=== PATIENT | male | born 1960 | race Caucasian/White ===

== ENCOUNTER 2017-09-19 18:16 | Emergency (ER) | payer OTHER ==
[~2017-09-19] VITALS: Ht 182.9 cm; Wt 74.8 kg
[~2017-09-19 18:16] MED LIST: ACET325; ALBU90OI INH; ALBU90OI6 INH; ALBU90OI61 INH; ALBUTEROL; AZIT250 PO; BENZ100A PO; BREO ELLIPTA 11 EACH INH; BUDE6HFA INH; CEPH500 PO; CETI5 PO; CYCL10 PO; FLUSAL2505; HYDGUAL120 PO; MUCOSA DM TABL1 EACH PO; Mucinex600 MG PO; OXYACE5T PO; PRED20 PO; Percocet 5-3251 EACH PO; Prednisone20 MG PO; QUET300 PO; SULTRIDS PO; TRAZ50 PO; Vibramycin100 MG PO; Zithromax250 MG PO
[2017-09-19 18:40] LABS: BASOPHILS ABSOLUTE AUTO 0.06 K/mm3 (0.00-0.23); BASOPHILS PERCENT AUTO 1 % (0-2); EOSINOPHILS ABSOLUTE AUTO 0.12 K/mm3 (0.00-0.68); EOSINOPHILS PERCENT AUTO 1 % (0-6); Hematocrit 43.9 % (37.0-53.0); IMMATURE GRAN PERCENT AUTO 1 % (0-1); LYMPHOCYTES PERCENT AUTO 37 % (21-46); MONOCYTES ABSOLUTE AUTO 0.64 K/mm3 (0.16-1.47); MONOCYTES PERCENT AUTO 7 % (4-13); Mean Corpuscular HGB 30.9 pg (26.0-34.0); Mean Corpuscular HGB Conc 34.2 g/dL (31.5-36.5); Mean Corpuscular Volume 90 fL (80-100); Mean Platelet Volume 9.9 fL (9.1-12.4); NEUTROPHILS PERCENT AUTO 53 % (41-73); Platelet Count 228 K/mm3 (150-400); RDW Coefficient Variation 13.7 % (11.7-14.2); RDW Standard Deviation 46.3 fL (35.1-46.3); Red Blood Cell Count 4.86 M/mm3 (4.30-5.90); White Blood Cell Count 9.22 K/mm3 (4.00-11.30)
[2017-09-19 19:01] LABS: Alanine Aminotransfer (ALT/SGP 111 U/L (12-78); Albumin, Blood 4.1 g/dL (3.4-5.0); Alk Phos 73 U/L (50-136); Anion Gap 8 mmol/L (6-16); Aspartate Aminotrans (AST/SGOT 118 U/L (12-37); Bilirubin, Total 0.5 mg/dL (0.1-1.0); Blood Urea Nitrogen 13 mg/dL (8-24); Bun/Creatinine Ratio 13.2 (12.0-20.0); CO2, Blood 27 mmol/L (21-32); Calcium, Blood 8.3 mg/dL (8.5-10.1); Chloride, Blood 102 mmol/L (98-108); Creatinine, Blood 0.98 mg/dL (0.60-1.20); Ethanol (Alcohol), Blood, Med 296 mg/dL; Globulin, Blood 4.3 g/dL (2.2-4.0); Glomerular Filtration Rate >60 (60-); Glucose, Blood 92 mg/dL (70-99); Potassium, Blood 4.3 mmol/L (3.5-5.5); Sodium, Blood 137 mmol/L (136-145); Total Protein, Blood 8.4 g/dL (6.4-8.2); Troponin I <0.015 ng/mL (0.000-0.040)
[2017-09-19] MEDS ORDERED: IBUP400 PO (20:20)
[2017-09-20] MEDS ORDERED: QUET100 (00:04)
[2017-09-20] MEDS ORDERED: Prednisone20 MG PO (02:39)
[2017-09-20] MEDS ORDERED: ALBU90OI INH (02:39)
== END 2017-09-19 20:50 | disposition home or self-care (01) ==
LOC: ER 18:16
PROVIDERS: Emergency Medicine
DX: R07.9 Chest pain, unspecified (principal); Z72.89 Other problems related to lifestyle; J44.9 Chronic obstructive pulmonary disease, unspecified; F17.210 Nicotine dependence, cigarettes, uncomplicated; Z79.899 Other long term (current) drug therapy
CPT/HCPCS: 36415; 71045; 71046; 80053; 84484; 85025; 93005; 93010; 96372; 96374; 96375; 99283; G0480; J2060; J2405; J3010

== ENCOUNTER → 2017-12-30 | Outpatient (CLI) | payer OTHER ==
[~2017-12-30] MED LIST changes: +IBUP400 PO; +QUET100
== END ==
LOC: LAB SHORT 17:50 → LAB 17:50
DX: S41.152A Open bite of left upper arm, initial encounter (principal); L03.114 Cellulitis of left upper limb
CPT/HCPCS: 87070; 87075; 87077; 87147; 87186; 87205

== ENCOUNTER 2019-02-27 02:08 | Observation (INO) | payer MEDICARE, OTHER ==
[~2019-02-27] VITALS: Ht 195.6 cm; Wt 90.7 kg
[~2019-02-27 02:08] MED LIST changes: -QUET100
== END 2019-02-27 11:23 | disposition home or self-care (01) ==
LOC: ER 02:08 → EOR 02:09
PROVIDERS: ADMIT Emergency Medicine
DX: F10.129 Alcohol abuse with intoxication, unspecified (principal); J43.9 Emphysema, unspecified; F17.210 Nicotine dependence, cigarettes, uncomplicated; Z79.52 Long term (current) use of systemic steroids
CPT/HCPCS: 96372; 99285-25; G0378; J3486

== ENCOUNTER 2019-03-15 14:14 | Emergency (ER) | payer MEDICARE, OTHER ==
[~2019-03-15] VITALS: Ht 195.6 cm; Wt 90.7 kg
== END 2019-03-15 15:34 | disposition home or self-care (01) ==
LOC: ER 14:14
DX: S62.347A Nondisplaced fracture of base of fifth metacarpal bone, left hand, initial encounter for closed fracture (principal); F17.210 Nicotine dependence, cigarettes, uncomplicated; Z79.899 Other long term (current) drug therapy; Z79.51 Long term (current) use of inhaled steroids; W22.8XXA Striking against or struck by other objects, initial encounter
CPT/HCPCS: 29125; 73130; 99283-25

== ENCOUNTER 2020-03-23 00:56 | Inpatient (IN) | payer MEDICARE ==
[~2020-03-23] VITALS: Ht 195.6 cm; Wt 90.6 kg
[2020-03-23 01:14] LABS: Hematocrit 40.9 % (37.0-53.0); Hemoglobin 14.1 g/dL (13.5-17.5); Mean Corpuscular HGB 31.5 pg (26.0-34.0); Mean Corpuscular HGB Conc 34.5 g/dL (31.5-36.5); Mean Corpuscular Volume 91 fL (80-100); Mean Platelet Volume 10.3 fL (9.1-12.4); Platelet Count 185 K/mm3 (150-400); RDW Coefficient Variation 13.8 % (11.7-14.2); RDW Standard Deviation 46.7 fL (35.1-46.3); Red Blood Cell Count 4.48 M/mm3 (4.30-5.90); White Blood Cell Count 12.21 K/mm3 (4.00-11.30)
[2020-03-23 01:24] LABS: PCO2 Arterial 31.6 mmHg (35-45); PO2 Arterial 106 mmHg (80-100); pH Blood Arterial 7.41 (7.35-7.45)
[2020-03-23 01:34] LABS: Alanine Aminotransfer (ALT/SGP 304 U/L (12-78); Albumin, Blood 3.2 g/dL (3.4-5.0); Albumin/Globulin Ratio 0.8 (0.8-1.8); Alk Phos 85 U/L (50-136); Anion Gap 11 mmol/L (6-16); Aspartate Aminotrans (AST/SGOT 404 U/L (12-37); Bilirubin, Total 2.5 mg/dL (0.1-1.0); Blood Urea Nitrogen 19 mg/dL (8-24); Bun/Creatinine Ratio 16.2 (12.0-20.0); CO2, Blood 21 mmol/L (21-32); Calcium, Blood 8.3 mg/dL (8.5-10.1); Chloride, Blood 102 mmol/L (98-108); Creatinine, Blood 1.17 mg/dL (0.60-1.20); Globulin, Blood 4.2 g/dL (2.2-4.0); Glomerular Filtration Rate >60 (60-); Glucose, Blood 121 mg/dL (70-99); Potassium, Blood 4.1 mmol/L (3.5-5.5); Sodium, Blood 134 mmol/L (136-145); Total Protein, Blood 7.4 g/dL (6.4-8.2); Troponin I <0.015 ng/mL (0.000-0.040)
[2020-03-23 01:36] LABS: BAND PERCENT MAN 34 % (0-8); BASOPHILS PERCENT MAN 0 % (0-2); EOSINOPHILS PERCENT MAN 0 % (0-6); LYMPHOCYTES ABSOLUTE MAN 1.09 K/mm3 (0.84-5.20); LYMPHOCYTES PERCENT MAN 9 % (21-46); METAMYELOCYTE ABSOLUTE MAN 0.24 K/mm3 (0.00-0.00); METAMYELOCYTE PERCENT MAN 2 % (0-0); MONOCYTES ABSOLUTE MAN 0.48 K/mm3 (0.16-1.47); MONOCYTES PERCENT MAN 4 % (4-13); NEUTROPHILS ABSOLUTE MAN 10.37 K/mm3 (1.96-9.15); SEG NEUTROPHILS PERCENT MAN 51 % (41-73); TOTAL CELLS COUNTED 100
[2020-03-23 02:22] LABS: Source, Urine Catheter
[2020-03-23 02:24] LABS: Bilirubin, Urine Neg (Neg); Blood, Urine 1+ (Neg); Glucose Qualitative, Urine Neg (Neg); Ketones, Urine 1+ (Neg); Leukocyte Esterase, Urine 1+ (Neg); Nitrite, Urine Neg (Neg); Protein, Urine 1+ (Neg); Urobilinogen, Urine 1+ (Normal)
[2020-03-23 02:33] LABS: Appearance, Urine Clear (Clear); Color, Urine Yellow (P-Yellow)
[2020-03-23 02:34] LABS: Bacteria Rare /hpf; Red Blood Cells, Urine 0-2 /hpf (0-2); Squamous Epithelial Cells Few /hpf (Few); White Blood Cells, Urine 0-2 /hpf (0-5)
[2020-03-23 02:57] LABS: Hemoglobin 13.2 g/dL (13.5-17.5); Mean Corpuscular HGB 32.2 pg (26.0-34.0); Mean Corpuscular HGB Conc 34.7 g/dL (31.5-36.5); Mean Corpuscular Volume 93 fL (80-100); Mean Platelet Volume 10.5 fL (9.1-12.4); Platelet Count 160 K/mm3 (150-400); White Blood Cell Count 10.74 K/mm3 (4.00-11.30)
[2020-03-23 03:08] LABS: U Amphetamine Screen Not Detected; U Barbituate Screen Not Detected; U Benzodiazapine Screen Not Detected; U Cannabinoids Screen Not Detected; U Cocaine Screen Not Detected; U Methadone Screen Not Detected; U Methamphetamine Screen Not Detected; U Opiates Screen Not Detected; U Phencyclidine Screen Not Detected
[2020-03-23 03:09] LABS: U Buprenorphine Screen Not Detected; U Oxycodone Screen Not Detected; U Propoxyphene Screen Not Detected
[2020-03-23 03:15] LABS: BAND PERCENT MAN 38 % (0-8); BASOPHILS PERCENT MAN 0 % (0-2); EOSINOPHILS PERCENT MAN 0 % (0-6); LYMPHOCYTES ABSOLUTE MAN 0.64 K/mm3 (0.84-5.20); LYMPHOCYTES PERCENT MAN 6 % (21-46); METAMYELOCYTE ABSOLUTE MAN 0.42 K/mm3 (0.00-0.00); METAMYELOCYTE PERCENT MAN 4 % (0-0); MONOCYTES ABSOLUTE MAN 0.21 K/mm3 (0.16-1.47); MONOCYTES PERCENT MAN 2 % (4-13); MYELOCYTE ABSOLUTE MAN 0.21 K/mm3 (0.00-0.00); MYELOCYTE PERCENT MAN 2 % (0-0); NEUTROPHILS ABSOLUTE MAN 9.23 K/mm3 (1.96-9.15); SEG NEUTROPHILS PERCENT MAN 48 % (41-73); TOTAL CELLS COUNTED 100
[2020-03-23 03:17] LABS: Alanine Aminotransfer (ALT/SGP 275 U/L (12-78); Albumin, Blood 2.8 g/dL (3.4-5.0); Albumin/Globulin Ratio 0.7 (0.8-1.8); Alk Phos 74 U/L (50-136); Anion Gap 10 mmol/L (6-16); Aspartate Aminotrans (AST/SGOT 366 U/L (12-37); Bilirubin, Total 2.6 mg/dL (0.1-1.0); Blood Urea Nitrogen 20 mg/dL (8-24); CO2, Blood 22 mmol/L (21-32); Chloride, Blood 103 mmol/L (98-108); Creatinine, Blood 1.25 mg/dL (0.60-1.20); Globulin, Blood 3.9 g/dL (2.2-4.0); Glomerular Filtration Rate >60 (60-); Glucose, Blood 133 mg/dL (70-99); Sodium, Blood 135 mmol/L (136-145); Total Protein, Blood 6.7 g/dL (6.4-8.2)
--- NOTE | 2020-03-23 04:20 | NUR ---
SPOKE WITH DR. PRESSLEY ABOUT IVF'S. STATES HE WANTS THE NS D/C'D AND FOR LR TO RUN BECAUSE THE PT IS ACIDOTIC.
--- NOTE | 2020-03-23 05:05 | NUR ---
ADMIT: PT TRANSFERRED TO ICU 5 VIA GURNEY WITH 2 RN'S AT BEDSIDE AND RT. HEART MONITOR ON AND SHOWING SINUS TACH WITH HR 130'S. PT ON VENT SETTINGS AC 16, TV 550, FIO2 30% AND PEEP 8. LS COARSE DIMINSIDHED T/O AND VERY DIMINISHED IN THE BASES. RR 32, PT NOT WELL SEDATED AND ATTEMPTING TO SIT UP IN BED AND REACH FOR ETT. BILAT WRIST RESTRAINTS APPLIED. SKIN PINK, WARM AND DRY. SCABS AND SCARS ON ARMS AND CHEST. WHAT LOOKS LIKE OLD CHEST TUBE SCARS NOTED; 2 ON LEFT, AND 1 ON RIGHT. 20G IV R AC WITH NS @ 100CC/HR. 18G IV LAC WITH PROPOFOL INCREASE TO 65MCG/KG/MIN. ABD R/F WITH HYPO BTX4. OG IN PLACE. MANZO TEMP PROBE IN PLACE. PT WAS TAKEN FOR CT CHEST TO R/O PE PRIOR TO ARRIVAL TO ICU.
--- NOTE | 2020-03-23 07:15 | NUR ---
ASSUMED CARE ASSUMED CARE OF PT AT 0700. REPORT RECEIVED FROM EMMA BENITEZ. PT INTUBATED, SEDATED, IN NO APPARENT DISTRESS. PUPILS 2MM, ROUND AND REACTIVE TO LIGHT. VENT SETTINGS AC 16, TV 550, PEEP 8, FiO2 30%, ACTUAL RR HIGH 20s-LOW 30s, SPO2 96%. LUNG SOUNDS CLEAR AND DIMINISHED T/O. MONITOR SHOWS SINUS TACH WITH HR 110-120s, SBP 90s, AFEBRILE. ABDOMEN ROUND AND FIRM, BTs HYPOACTIVE T/O, NO S/SX OF PAIN ON PALPATION. TEMP MANZO IN PLACE DRAINING CLEAR YELLOW URINE TO GRAVITY. SKIN OVERALL C/D/I WITH SEVERAL OLD SCARS T/O TRUNK AND ARMS AND SCATTERED SCABBING. PT HAS 20G IV TO R AC WHICH IS SL, 20G TO R FA WITH LR @150ML/HR, AND 18G TO L AC WITH PROPOFOL AT 65MCG/KG. MICHELLE SOFT WRIST RESTRAINTS IN PLACE TO PROTECT LINES, TUBES. WILL CONTINE TO MONITOR PT CLOSELY.
--- NOTE | 2020-03-23 09:30 | NUR ---
DR. PEREZ/DR. DC PEREZ AND DR. IRWIN ROUNDED ON PT. PLAN TO KEEP PT INTUBATED AND SEDATED TODAY. PLAN FOR ECHO. PLAN TO ADD PRECEDEX FOR SEDATION AND DECREASE PROPOFOL TOLERATED. MAINTENANCE IV FLUIDS DC'D. NO ADDITIONAL ORDERS RECEIVED AT THIS TIME. WILL CONTINUE TO MONITOR PT.
--- NOTE | 2020-03-23 14:40 | NUR ---
TUBE FEED VITAL HIGH PROTEIN TUBE FEED STARTED AT 25ML/HR PER ORDERS WITH 30ML/Q4H H2O FLUSH.
--- NOTE | 2020-03-23 16:15 | NUR ---
HANDOFF REPORT GIVEN TO EMMA NEUMANN TO ASSUME CARE OF PT.
--- NOTE | 2020-03-23 16:33 | NUR ---
care assumed of pt; bedside report taken. pt sedated on propofol at 45mcg, precedex at 0.5mcg. pt on levophed at 2mcg to keep map>65.
--- NOTE | 2020-03-23 17:28 | NUR ---
PICC WAS PLACED TO NIK EARILIER THIS SHIFT, PICC PLACED W/O DIFFICULTY. PT PLACED ON MED SS COVERAGE FOR BS.
--- NOTE | 2020-03-23 19:43 | NUR ---
ASSUMED CARE: PT SEDATED, BUT PULLS AT BIALT WRSIT RESTRAINTS WHEN AROUSED, ANDREA AT 3MM BILAT. LS VERY TIGHT AND DIMINISHED T/O WITH BIOX 96% ON VENT SETTINGS AC 16, TV 400, FIO2 30% AND PEEP 8. PT USING ACCESSORY MUSCLES. HEART SOUNDS VERY DISTANT WITH MONITOR SHOWING ST WITH HR 120. SKIN, PINK, WARM AND DRY. PPP BILAT AND FAINT. RADIAL PULSES FAINT WELL. 18G IV LAC S/L. TRIPLE LUMEM PICC NIK WITH 3CM OUT. LEVOPHED RUNNING AT 2MCG/MIN = 7.5CC/HR WITH PROPOFOL AT 45MCG/KG/MIN= 24.8CC/HR AND PRECEDEX AT 0.5MCG/KG/HR= 11.5CC/HR. ABD R/D WITH HYPO BTX4. VHP TUBE FEEDING RUNNING AT 25CC/HR WITH 30CC FLUSH Q4H. TUBE FEEDING RESIDUALS 200 AND REFED. WILL CONTINUE TO MONITOR. MANZO DRAINING DARK YELLOW URINE.
--- NOTE | 2020-03-23 19:45 | NUR ---
CALLED DR. PEREZ ABOUT PT'S BREATHING STATUS. CODIE RT TALKED TO DR. PEREZ AND WE CHANGED PT'S TV TO 600. PT SEEMS TO BE TOLERATING IT MUCH BETTER.
--- NOTE | 2020-03-24 00:43 | NUR ---
MIDSHIFT NOTE: TUBE FEEDING RESIDUALS 300CC AND REFED. TUBE FEEDING STOPPED FOR NOW. LS CLEAR DIMINSHED IN THE BASES WITH BIOX 95%. COMPLETE BED BATH GIVEN. NO ACUTE CHANGES.
--- NOTE | 2020-03-24 03:43 | NUR ---
ASSESSMENT: LS VERY DIMINISHED AND TIGHT T/O. RT AT BEDSIDE TO DO BREATHING TX. TUBE FEEDING RESIDUALS 20CC ANDREFED. TUBE FEEDING RESTARTED AT 25CC/HR.
[2020-03-24 03:50] LABS: Hematocrit 36.2 % (37.0-53.0); Hemoglobin 12.1 g/dL (13.5-17.5); Mean Corpuscular HGB 30.6 pg (26.0-34.0); Mean Corpuscular HGB Conc 33.4 g/dL (31.5-36.5); Mean Corpuscular Volume 92 fL (80-100); Mean Platelet Volume 10.5 fL (9.1-12.4); Platelet Count 140 K/mm3 (150-400); RDW Coefficient Variation 13.6 % (11.7-14.2); RDW Standard Deviation 46.5 fL (35.1-46.3); Red Blood Cell Count 3.95 M/mm3 (4.30-5.90); White Blood Cell Count 17.41 K/mm3 (4.00-11.30)
[2020-03-24 04:08] LABS: Alanine Aminotransfer (ALT/SGP 196 U/L (12-78); Albumin, Blood 2.4 g/dL (3.4-5.0); Albumin/Globulin Ratio 0.6 (0.8-1.8); Alk Phos 51 U/L (50-136); Anion Gap 5 mmol/L (6-16); Aspartate Aminotrans (AST/SGOT 188 U/L (12-37); Bilirubin, Total 2.2 mg/dL (0.1-1.0); Blood Urea Nitrogen 19 mg/dL (8-24); Bun/Creatinine Ratio 16.5 (12.0-20.0); CO2, Blood 28 mmol/L (21-32); Calcium, Blood 8.4 mg/dL (8.5-10.1); Chloride, Blood 104 mmol/L (98-108); Creatinine, Blood 1.15 mg/dL (0.60-1.20); Globulin, Blood 4.2 g/dL (2.2-4.0); Glomerular Filtration Rate >60 (60-); Glucose, Blood 164 mg/dL (70-99); Magnesium, Blood 2.1 mg/dL (1.6-2.4); Phosphorus, Blood 1.8 mg/dL (2.5-4.9); Potassium, Blood 3.5 mmol/L (3.5-5.5); Sodium, Blood 137 mmol/L (136-145); Total Protein, Blood 6.6 g/dL (6.4-8.2)
[2020-03-24 04:28] LABS: BAND PERCENT MAN 38 % (0-8); BASOPHILS PERCENT MAN 0 % (0-2); EOSINOPHILS PERCENT MAN 0 % (0-6); LYMPHOCYTES ABSOLUTE MAN 0.17 K/mm3 (0.84-5.20); LYMPHOCYTES PERCENT MAN 1 % (21-46); METAMYELOCYTE ABSOLUTE MAN 0.17 K/mm3 (0.00-0.00); METAMYELOCYTE PERCENT MAN 1 % (0-0); MONOCYTES ABSOLUTE MAN 0.52 K/mm3 (0.16-1.47); MONOCYTES PERCENT MAN 3 % (4-13); MYELOCYTE ABSOLUTE MAN 0.17 K/mm3 (0.00-0.00); MYELOCYTE PERCENT MAN 1 % (0-0); NEUTROPHILS ABSOLUTE MAN 16.36 K/mm3 (1.96-9.15); SEG NEUTROPHILS PERCENT MAN 56 % (41-73); TOTAL CELLS COUNTED 100
--- NOTE | 2020-03-24 08:00 | NUR ---
ASSUMED CARE OF PT AT 0700. BEDSIDE REPORT FROM EMMANUEL CARTER. PT INTUBATED AND SEDATED. VENT SETTINGS, AC 14/600/8/30&. PROPOFOL GTT AT 45 MCG/KG/MIN AND PRECEDEX AT 0.5 MCG/KG/HR. PT RESPONSIVE TO PAINFUL STIMULI. WITHDRAWS FROM PAIN. GAG/COUGH REFLEX PRESENT. LUNGS DIMINISHED THROUGHOUT. SCANT YELLOW SECRETIONS THROUGH ETT. BP STABLE, HR 100, ST. ABD ROUND, FIRM, HYPOACTIVE BT. TUBE FEEDS AT 25 MG/HR c 30 ML FLUSH q4 HR. 10 ML RESIDUAL THIS AM. MANZO IN PLACE, PATENT, DRAINING TO GRAVITY. PT c MULTIPLE SCARS OVER BODY. PICC TO [facility], DRESSING C/D/I. WILL CONTINUE TO MONITOR.
[2020-03-24] MEDS ORDERED: METOPROLOL SUCC25 MG PO (13:46)
[2020-03-24] MEDS ORDERED: PRINIVIL10 MG PO (13:46)
[2020-03-24] MEDS ORDERED: AMLODIPINE BESYL5 MG PO (13:46)
[2020-03-24] MEDS ORDERED: Diclofenac Sodi50 MG (13:47)
[2020-03-24] MEDS ORDERED: QUETIAPINE FUM300 M3 PO (13:47)
[2020-03-24 15:17] LABS: Vancomycin, Trough 14.5 ug/mL (5.0-10.0)
--- NOTE | 2020-03-24 16:24 | NUR ---
Pt reamins on vent reveiw of pt needs with nursing. Pt is here staying with friends. He has been declining in his ability tolerate any activity. Sis ter in coming in from out of state this evening. Plan is to try and extubate tomorrow and discuss code status and possible home on hospice.
--- NOTE | 2020-03-24 17:41 | NUR ---
SHIFT SUMMARY PT REMAINS INTUBATED AND SEDATED. PT HAS BEEN ON SPONT 5/5/30% MOST OF SHIFT. TOLERATING WELL. APPROX 600 TV, RATE 16-20. PROPOFOL GTT AT 30 MCG/KG/MIN, PRECEDEX 0.7 MCG/KG/HR. PT RESPONSES TO PAINFUL STIMULI. RASS -4, OCCASIONALLY TENSES OR PULLS ON RESTRAINTS WHEN STARTLED. LUNGS COARSE. SCANT SECRETIONS THROUGH ETT. ABD ROUND, FIRM, NON TENDER. HYPOACTIVE BT, RESIDUALS 10, 20, 220. CONTINUED VHP AT 35 ML/HR c FLUSHES 30 ML q4. MANZO PATENT, DRAINING RAAD URINE TO GRAVITY. VSS. KPHOS REPLACED THIS SHIFT. CT ABD/PELVIS COMPLETED, COLITIS NOTED. ETT SECURED AT 25 AT TEETH POST XRAY. WILL CONTINUE TO MONITOR UNTIL REPORT TO ONCOMING NURSE.
--- NOTE | 2020-03-24 21:00 | NUR ---
ASSUMED PT CARE FROM EMMA LIU AT 1915 PT INTUBATED AND SEDATED. PRECEDEX AT 0.7MCG/KG/HR, PROPOFOL AT 30MCG/KG/MIN. VENT: SPONTANEOUS WITH PS 5/5; FIO2 30%. SEDATION VACATION PERFORMED RIGHT AWAY TO ESTABLISH BASELINE NEURO STATUS. PROPOFOL TITRATED DOWN TO 10MCG/KG/MIN. PT SPONTANEOUSLY ABLE TO OPEN EYES, SHAKES HEAD YES/NO TO QUESTIONS, AND FOLLOWS COMMANDS. PT BECAME VERY ANXIOUS AND ATTEMPTED SITTING UP IN BED AND PULLING ON RESTRAINTS. TURNED PROPOFOL BACK ON AT 25MCG/KG/MIN AND ADMINISTERED 50MCG OF FENTANYL PER ORDERS FOR PAIN. VITAL HIGH PROTEIN INFUSING AT 35MLS/HR WITH A GOAL RATE OF 50 MLS/HR. RESIDUAL 140CC; TF INCREASED TO 45MLS/HR SHORTLY AFTER ASSUMPTION OF CARE. PT NOTED TO BE NSR TO SINUS TACHYCARDIA WITH HR 90-100'S. SBP 110-120'S. MANZO CATHETER IS PATENT AND DRAINING CLEAR BUT DARK RAAD COLORED URINE TO GRAVITY. WILL CONTINUE TO MONITOR FOR ANY CHANGES.
[2020-03-25 04:28] LABS: Base Excess Venous 3.9 mmol/L; Bicarbonate Venous 27.3 mmol/L (24.0-30.0); PO2 Venous 48.3 mmHg (38-42); pH Blood Venous 7.44 (7.34-7.37)
[2020-03-25 04:29] LABS: BASOPHILS ABSOLUTE AUTO 0.03 K/mm3 (0.00-0.23); BASOPHILS PERCENT AUTO 0 % (0-2); EOSINOPHILS ABSOLUTE AUTO 0.01 K/mm3 (0.00-0.68); EOSINOPHILS PERCENT AUTO 0 % (0-6); Hematocrit 34.1 % (37.0-53.0); Hemoglobin 11.6 g/dL (13.5-17.5); IMMATURE GRAN PERCENT AUTO 2 % (0-1); LYMPHOCYTES ABSOLUTE AUTO 1.42 K/mm3 (0.84-5.20); LYMPHOCYTES PERCENT AUTO 8 % (21-46); MONOCYTES ABSOLUTE AUTO 0.66 K/mm3 (0.16-1.47); MONOCYTES PERCENT AUTO 4 % (4-13); Mean Corpuscular HGB 31.6 pg (26.0-34.0); Mean Corpuscular Volume 93 fL (80-100); Mean Platelet Volume 10.6 fL (9.1-12.4); NEUTROPHILS PERCENT AUTO 86 % (41-73); Platelet Count 143 K/mm3 (150-400); RDW Coefficient Variation 14.2 % (11.7-14.2); RDW Standard Deviation 48.5 fL (35.1-46.3); Red Blood Cell Count 3.67 M/mm3 (4.30-5.90); White Blood Cell Count 17.42 K/mm3 (4.00-11.30)
[2020-03-25 04:51] LABS: Anion Gap 4 mmol/L (6-16); Blood Urea Nitrogen 21 mg/dL (8-24); Bun/Creatinine Ratio 22.9 (12.0-20.0); CO2, Blood 28 mmol/L (21-32); Calcium, Blood 8.2 mg/dL (8.5-10.1); Chloride, Blood 107 mmol/L (98-108); Creatinine, Blood 0.92 mg/dL (0.60-1.20); Glomerular Filtration Rate >60 (60-); Glucose, Blood 130 mg/dL (70-99); Magnesium, Blood 2.4 mg/dL (1.6-2.4); Phosphorus, Blood 1.9 mg/dL (2.5-4.9); Potassium, Blood 3.8 mmol/L (3.5-5.5); Sodium, Blood 139 mmol/L (136-145)
--- NOTE | 2020-03-25 06:29 | NUR ---
END OF SHIFT SUMMARY PT REMAINS INTUBATED AND SEDATED. PROPOFOL AT 30MCG/KG/MIN, PRECEDEX AT 0.7 MCG/KG/HR. VENT SETTINGS: SPONTANEOUS PS 5/5; FIO2 30%. NO SIGNIFICANT CHANGES T/O SHIFT. PT ABLE TO FOLLOW COMMANDS DURING SEDATION VACATION, SEE EARLIER ENTRY NOTE. VITAL HIGH PROTEIN INFUSING AT GOAL OF 50MLS/HR. MANZO CATH IS PATENT AND DRAINING CLEAR DARK, RAAD COLORED URINE WITH AN ORANGE TINT NOTED. PT HAS REMAINED NSR WITH HR 90'S; BP'S STABLE, SEE FLOWSHEET. WILL CONTINUE TO MONITOR UNTIL REPORT IS HANDED OFF TO ONCOMING RN.
--- NOTE | 2020-03-25 07:40 | NUR ---
ASSUMED CARE OF PT AT 0700. BEDSIDE REPORT FROM ITZ CARTER. PT INTUBATED AND SEDATED. VENT SETTINGS SPONT 5/5/30%. PROPOFOL GTT 50 MCG/KG/MIN, PRECEDEX 0.7 MCG/KG/HR. PT INTERMITTANTLY AGITATED, SITTING UP IN BED, PULLING ON RESTRAINTS. MEDICATED c FENTANYL AND ATIVAN PRN. ABLE TO CALM AND REDIRECT PT. LUNGS CLEAR. SCANT SECRETIONS THROUGH ETT. COUGH/GAG REFLEX PRESENT. ABD ROUND, SOFT, NON TENDER. HYPOACTIVE BT. VHP AT GOAL OF 50 ML/HR c 30 ML FLUSHES q4 HR. RESIDUAL 100 ML THIS AM. MANZO PATENT, DRAINING TO GRAVITY. PICC TO RUE, DRESSING C/D/I. VSS. WILL CONTINUE TO MONITOR.
--- NOTE | 2020-03-25 10:35 | NUR ---
EXTUBATION PROPOFOL PLACED ON STANDBY. PT ABLE TO FOLLOW SIMPLE COMMANDS. GAG/COUGH/SWALLOW REFLEX PRESENT. PT EXTUBATED AT 0958, RESTRAINTS REMOVED, PRECEDEX PLACED ON STANDBY. PT ABLE TO COUGH ON COMMAND. WEAK AT THIS TIME. ABLE TO MANAGE SECRETIONS. REORIENTED TO EVENT. SOFT VOICE. PLACED ON 3L VIA NC. LUNGS CLEAR. BRITTANY CONTINUE TO MONITOR.
--- NOTE | 2020-03-25 17:30 | NUR ---
SHIFT SUMMARY PT EXTUBATED THIS SHIFT. CURRENTLY ON RA, O2 SATS >91%. LUNGS OCCASIONALLY COARSE. PRODUCTIVE COUGH c CLEAR SPUTUM. PT ABLE TO MANAGE SECRETIONS. SPEAKING IN FULL SENTANCES. PT FRIENDLY c STAFF BUT YELLS TO STAFF IN HALLS. ENCOURAGED PT TO USE CALL LIGHT. PT PASSED BEDSIDE SWALLOW EVAL s DIFFICULTIES. ADVANCED DIET. HR INCREASED TO 120'S, DR WALLS NOTIFIED. HOME METOPROLOL AND SEROQUEL ORDERED. PT HAD ONE LOOSE BM. 2300ML URINE OUT, MANZO PATENT, DRAINING TO GRAVITY. BP STABLE. WILL CONTINUE TO MONITOR UNTIL REPORT TO ONCOMING NURSE.
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
--- NOTE | 2020-03-25 19:22 | NUR ---
ASSUMED PT CARE FROM EMMA LIU AT 1900 PT SITTING UP IN BED. ALERT AND ORIENTED; HOWEVER, NOTED TO BE FORGETFUL AT TIMES. PT NOTED TO HAVE A VERY DRY SENSE OF HUMOR SAYING THAT THE NURSES HAVE BEEN MEAN TO HIM AND THAT HE HAD TO JOKE AROUND WITH THEM BY THREATENING TO "SHOOT THEM" AND "STAB THEM"; I REPLIED THAT WASN'T A GOOD JOKE, NOR SOMETHING THAT WAS FUNNY. PT APOLOGIZED AND SAID, "NAW, THE STAFF HAS BEEN VERY NICE." PT NOTED TO BECOME SOB DURING CONVERSATIONS. EXPIRATORY WHEEZING NOTED TO RIGHT UPPER LOBE; CLEAR T/O ALL OTHER LOBES. SINUS TACHYCARDIA NOTED WITH HR 120'S. SBP >150. PT MEDICATED WITH METOPROLOL PER ORDERS EARLIER. NS INFUSING TKO VIA PICC LINE TO NIK. ABDOMEN IS MILDLY DISTENDED WITH ACTIVE BT. MANZO CATHETER IS PATENT AND DRAINING CLEAR, YELLOW URINE TO GRAVITY. PT ABLE TO SHIFT OWN WEIGHT IN BED; HOWEVER, ASSISTED WITH BOOST D/T LEGS HANGING OVER END OF THE BED. PT REQUESTED A BEER. INFORMED PT HE DID NOT HAVE ORDERS FOR A BEER, BUT WE COULD ASK THE DOCTOR IN THE MORNING. PT STATED, "THAT'S OKAY, IT'S GOOD TO GO A FEW DAYS WITHOUT A DRINK." OBTAINED A VIOLET MIST FOR PT INSTEAD. PT STATED HE HOPES HE CAN SLEEP TONIGHT HE DID NOT GET ANY SLEEP THE ENTIRE TIME HE WAS INTUBATED. HE WAS WIDE AWAKE AND THAT THE STAFF KEPT SAYING THEY WOULD SEDATE HIM AND MAKE HIM COMFORTABLE, BUT THAT WAS NOT THE CASE. STATED HE DOESN'T WANT TO BE INTUBATED AGAIN. INFORMED PT THAT HE SHOULD FILL OUT A POLST FORM TO LET STAFF KNOW HIS WISHES BECAUSE OF NOW HE IS A FULL CODE, INCLUDING INTUBATION. CALL LIGHT WITHIN REACH; PT ABLE TO MAKE HIS NEEDS KNOWN.
[2020-03-26 04:10] LABS: BASOPHILS ABSOLUTE AUTO 0.05 K/mm3 (0.00-0.23); BASOPHILS PERCENT AUTO 0 % (0-2); EOSINOPHILS ABSOLUTE AUTO 0.03 K/mm3 (0.00-0.68); EOSINOPHILS PERCENT AUTO 0 % (0-6); Hematocrit 34.5 % (37.0-53.0); Hemoglobin 11.6 g/dL (13.5-17.5); IMMATURE GRAN ABSOLUTE AUTO 0.23 K/mm3 (0.00-0.10); IMMATURE GRAN PERCENT AUTO 2 % (0-1); LYMPHOCYTES ABSOLUTE AUTO 2.28 K/mm3 (0.84-5.20); LYMPHOCYTES PERCENT AUTO 18 % (21-46); MONOCYTES ABSOLUTE AUTO 0.58 K/mm3 (0.16-1.47); MONOCYTES PERCENT AUTO 5 % (4-13); Mean Corpuscular HGB 31.8 pg (26.0-34.0); Mean Corpuscular HGB Conc 33.6 g/dL (31.5-36.5); Mean Corpuscular Volume 95 fL (80-100); Mean Platelet Volume 10.3 fL (9.1-12.4); NEUTROPHILS PERCENT AUTO 76 % (41-73); Platelet Count 152 K/mm3 (150-400); RDW Coefficient Variation 14.9 % (11.7-14.2); RDW Standard Deviation 52.2 fL (35.1-46.3); Red Blood Cell Count 3.65 M/mm3 (4.30-5.90); White Blood Cell Count 12.97 K/mm3 (4.00-11.30)
[2020-03-26 04:25] LABS: Anion Gap 2 mmol/L (6-16); Blood Urea Nitrogen 18 mg/dL (8-24); Bun/Creatinine Ratio 20.4 (12.0-20.0); CO2, Blood 31 mmol/L (21-32); Calcium, Blood 8.8 mg/dL (8.5-10.1); Chloride, Blood 111 mmol/L (98-108); Creatinine, Blood 0.88 mg/dL (0.60-1.20); Glomerular Filtration Rate >60 (60-); Glucose, Blood 82 mg/dL (70-99); Magnesium, Blood 2.3 mg/dL (1.6-2.4); Phosphorus, Blood 1.9 mg/dL (2.5-4.9); Potassium, Blood 3.6 mmol/L (3.5-5.5); Sodium, Blood 144 mmol/L (136-145)
--- NOTE | 2020-03-26 06:18 | NUR ---
END OF SHIFT SUMMARY NO SIGNIFICANT CHANGES OR EVENTS T/O SHIFT. PT HAS BEEN AWAKE ALL NIGHT. CONTINUES TO BE ALERT WITH FORGETFULNESS NOTED. DID REQUEST HIS ARTHRITIS MEDICATION THAT HE COULD NOT RECALL THE NAME OF. STATES HE GOES TO A [facility] IN [place], [place]. INFORMED HIM WE COULD ATTEMPT TO ALL AND SEE WHAT MED IT IS AND ASK FOR ORDERS. PT HAS BEEN ON ROOM AIR WITH OXYGEN SATURATIONS >90%. AT SOMEPOINT IN THE NIGHT PT PLACED HIMSELF ON 3L OF OXYGEN; HOWEVER, OXYGEN WAS NOT NEEDED AND REMOVED WITH SPO2 REMAINING >90%. VSS, SEE FLOWSHEET. LUNG SOUNDS VARY BETWEEN CLEAR AND DIMINISHED TO COARSE AND WHEEZING. MANZO CATHETER IS PATENT AND DRAINING DARK, RAAD COLORED URINE TO GRAVITY. CALL LIGHT WITHIN REACH AND PT IS ABLE TO MAKE HIS NEEDS KNOWN.
--- NOTE | 2020-03-26 07:45 | NUR ---
ASSUMED CARE: REPORT RECEIVED FROM ITZ Mendes RN. ASSUMED CARE OF THIS PT AT APPROX 0700. ON ASSESSMENT, THE PT IS A&O, COOPERATIVE W/ CARE. HE HAS A DRY SENSE OF HUMOR & MAKES INNAPROPRIATE JOKES AT TIMES, BUT IS REDIRECTED EASILY. PT STS HAVING CHRONIC PAIN TO HIS R SHOULDER R/T ARTHRITIS, PAIN IS WORSENED FROM LACK OF PHYSICAL MOVEMENT & NOT TAKING HOME MED DICLOFENAC. WILL ADDRESS THIS W/ PROVIDER IF PT WILL BE STAYING IN HOSPITAL AGAIN TONIGHT. LS ARE DIM IN BASES, PT DENIES SOB. O2 SATS > 92% ON RA. MONITOR SHOWS ST W/ HR 100s, BP STABLE. HE HAS NO GI COMPLAINTS & IS TOLERATING PO INTAKE WELL. MANZO PATENT/ DRAINING. SKIN CONDITION OVERALL CDI. WILL CONTINUE TO MONITOR & UPDATE NEEDED.
--- NOTE | 2020-03-26 08:36 | NUR ---
DR SMITH: PROVIDER AT BEDSIDE TO AMNA PT. HE STS OKAY TO REORDER PT's HOME DOSE OF DICLOFENAC FOR CHRONIC ARTHRITIS PAIN TO R SHOULDER, WILL PLACE ORDERS. ALSO OKAY FOR PT TO BE MEDICAL STATUS W/ NO TELE, ORDERS PLACED. NO OTHER CHANGES AT THIS TIME.
--- NOTE | 2020-03-26 17:39 | NUR ---
TRANSFER TO ROOM 358: REPORT HAS BEEN GIVEN TO EMMA ALLISON TO ASSUME CARE. PT IS ABLE TO AMBULATE TO W/ 2 STAFF ASSIST & REQUESTS TO HAVE MANZO REMOVED. MANZO OUT AT 1723. CHART & ALL PT BELONGINGS HAVE BEEN TAKEN UP W/ PT. PT OUT OF UNIT TO RM 358 VIA AT APPROX 1725.
--- NOTE | 2020-03-26 18:37 | NUR ---
PT ARRIVED AO AND COOPERATIVE OF CARE. ARRIVED VIA WHEELCHAIR AND IS A 1-2 PERSON TRANSFER. PT CAN USE CALL LIGHT APPROPRIATELY AND HAS IT IN REACH. PT SHOWS NO SIGNS OF DISTRESS AND IS EATING DINNER WHILE WATCHING TV. WILL CONTINUE TO MONITOR.
[2020-03-27 05:52] LABS: BASOPHILS ABSOLUTE AUTO 0.05 K/mm3 (0.00-0.23); BASOPHILS PERCENT AUTO 1 % (0-2); EOSINOPHILS ABSOLUTE AUTO 0.08 K/mm3 (0.00-0.68); EOSINOPHILS PERCENT AUTO 1 % (0-6); Hematocrit 35.2 % (37.0-53.0); Hemoglobin 11.8 g/dL (13.5-17.5); IMMATURE GRAN ABSOLUTE AUTO 0.29 K/mm3 (0.00-0.10); IMMATURE GRAN PERCENT AUTO 4 % (0-1); LYMPHOCYTES ABSOLUTE AUTO 2.19 K/mm3 (0.84-5.20); LYMPHOCYTES PERCENT AUTO 26 % (21-46); MONOCYTES ABSOLUTE AUTO 0.73 K/mm3 (0.16-1.47); MONOCYTES PERCENT AUTO 9 % (4-13); Mean Corpuscular HGB 31.4 pg (26.0-34.0); Mean Corpuscular HGB Conc 33.5 g/dL (31.5-36.5); Mean Corpuscular Volume 94 fL (80-100); Mean Platelet Volume 10.2 fL (9.1-12.4); NEUTROPHILS ABSOLUTE AUTO 5.05 K/mm3 (1.96-9.15); NEUTROPHILS PERCENT AUTO 60 % (41-73); Platelet Count 142 K/mm3 (150-400); RDW Coefficient Variation 14.4 % (11.7-14.2); RDW Standard Deviation 49.2 fL (35.1-46.3); Red Blood Cell Count 3.76 M/mm3 (4.30-5.90); White Blood Cell Count 8.39 K/mm3 (4.00-11.30)
--- NOTE | 2020-03-27 13:16 | NUR ---
Brief visit with Pt this afternoon. Engaged in therapeutic listening as Pt reports being a couple of days ago to Ngoc. Started conversation regarding wishes for life sustaining measures with Pt reporting not wanting to be intubated again but would like to speak with Ngoc about it first. Respiratory therapy in to provided breathing treatment. Pt agreeable for this RN to visit at a later time. Spoke with Bedside RN Cheri and discussed case. Palliative Care will F/U with Pt at a later time.
[2020-03-27] MEDS ORDERED: CEFU500T30 PO (14:42)
[2020-03-27] MEDS ORDERED: PRED20 PO (14:44)
[2020-03-27] MEDS ORDERED: VISBIOME PROBIOTIC PO (14:44)
--- NOTE | 2020-03-27 17:36 | NUR ---
PT DISCHARGED PT DISCHARGED. PT EDUCATED ON NEW MEDS AND FOLLOW UP NEEDS. PT STATES HE UNDERSTANDS. PT WHEELED OUT BY THIS RN AND DRIVEN TO [facility], WHILE SISTER DRIVES FROM [place] TO PIGMENT AND [employer]IXER PT. PT EVALUATED BY PHYSICAL THERAPY PRIOR TO DC. NO CHANGES IN ASSESSMENT PRIOR TO DC.
== END 2020-03-27 17:28 | disposition home or self-care (01) | DRG 871 ==
LOC: ER 00:56 → ICUE 02:26 → ICUW 02:26 → MEDS 02:26 → ICUE 03:25 → MEDS 03-26 17:38
PROVIDERS: Emergency Medicine; Family Medicine; Internal Medicine Critical Care Medicine; Internal Medicine Pulmonary Disease; ADMIT Internal Medicine
PROC: 5A1945Z Respiratory Ventilation, 24-96 Consecutive Hours (ICD-10-PCS; principal; 2020-03-23)
PROC: 0BH17EZ Insertion of Endotracheal Airway into Trachea, Via Natural or Artificial Opening (ICD-10-PCS; 2020-03-23)
PROC: 02HV33Z Insertion of Infusion Device into Superior Vena Cava, Percutaneous Approach (ICD-10-PCS; 2020-03-23)
PROC: B548ZZA Ultrasonography of Superior Vena Cava, Guidance (ICD-10-PCS; 2020-03-23)
PROC: 3E0234Z Introduction of Serum, Toxoid and Vaccine into Muscle, Percutaneous Approach (ICD-10-PCS; 2020-03-23)
PROC: 0DH67UZ Insertion of Feeding Device into Stomach, Via Natural or Artificial Opening (ICD-10-PCS; 2020-03-23)
DX: A41.51 Sepsis due to Escherichia coli [E. coli] (principal); J96.01 Acute respiratory failure with hypoxia; J44.1 Chronic obstructive pulmonary disease with (acute) exacerbation; E87.2 Acidosis; I50.20 Unspecified systolic (congestive) heart failure; Z20.828 Contact with and (suspected) exposure to other viral communicable diseases; K21.9 Gastro-esophageal reflux disease without esophagitis; K52.9 Noninfective gastroenteritis and colitis, unspecified; I95.9 Hypotension, unspecified; R79.89 Other specified abnormal findings of blood chemistry; F17.210 Nicotine dependence, cigarettes, uncomplicated; Z78.1 Physical restraint status; Z23 Encounter for immunization
CPT/HCPCS: 31500; 31720; 36415; 36569; 36600; 51702; 71045; 71260; 74177; 80048; 80053; 80202; 81001; 82803; 82947; 83605; 83735; 84100; 84145; 84484; 85025; 87040; 87077; 87186; 93005; 93010; 94002; 94003; 94640; 94644; 94760; 94770; 96374-59; 96375-59; 97162; 99285-25; A9270; C1751; C8929; C9113; G0008; J0330; J0696; J1650; J1815; J1956; J2060; J2250; J2543; J2704; J2920; J2930; J3010; J3370; J7030; J7050; J7060; J7120; Q2038; Q9957; Q9967; U0004